=== PATIENT | female | born 1980 | race Two or more races ===

== ENCOUNTER 2023-06-21 10:50 | Emergency (ER) | payer SELFPAY ==
[~2023-06-21] VITALS: Ht 160 cm; Wt 70.2 kg
[2023-06-21] MEDS ORDERED: LABETALOL HCL 5 MG/ML 4ML SYRINGE IV ONE ×2 (11:45→13:30)
[2023-06-21 11:51] VITALS: TEMP 97
[2023-06-21 11:58] LABS: Basophils # (auto) 0 10 ^3/uL (0-0.2); Basophils % (auto) 0.5 % (0.0-2.0); Eosinophils # (auto) 0 10 ^3/uL (0-0.8); Hematocrit 43.4 % (36.0-46.0); Hemoglobin 14.2 g/dL (12.2-16.2); Lymphocytes # (auto) 0.8 10 ^3/uL (0.4-5.4); Lymphocytes % (auto) 8.4 % (10.0-50.0); Mean Corpuscular Hemoglobin 28.2 pg (28.0-32.0); Mean Corpuscular Hgb Conc. 32.6 g/dL (32.0-36.0); Mean Corpuscular Volume 86.5 fL (80.0-100.0); Monocytes # (auto) 0.2 10 ^3/uL (0-1.3); Monocytes % (auto) 2.6 % (0.0-12.0); Neutrophils # (auto) 8.5 10 ^3/uL (1.6-8.6); Neutrophils % (auto) 88.5 % (37.0-80.0); Red Blood Cells 5.02 10^6/uL (4.0-5.20); White Blood Cell 9.6 10^3/uL (4.4-10.8)
[2023-06-21 12:04] LABS: Urine Epithelial Cast None Seen /hpf (<5)
[2023-06-21 12:17] LABS: Urine Bacteria NONE SEEN /hpf (None Seen); Urine Blood 2+ /uL (Negative); Urine Clarity Clear (Clear); Urine Color Yellow (Yellow); Urine Mucus FEW (None Seen); Urine Protein, UAD 1+ (Negative); Urine Specific Gravity 1.024 (1.001-1.035); Urine Urobilinogen Normal (Negative); Urine WBC <1 /hpf (0 - 5)
[2023-06-21 12:19] LABS: Alanine Aminotransferase 23 U/L (7-40); Albumin 4.7 g/dL (3.2-4.8); Alkaline Phosphatase 75 U/L (46-116); Anion Gap 5 (5-15); Aspartate Aminotransferase 24 U/L (13-40); BUN/Creatinine Ratio 18.2 (10.0-20.0); Bilirubin, Total 0.5 mg/dL (0.2-1.0); Blood Urea Nitrogen 10 mg/dL (9-23); Carbon Dioxide 26 mmol/L (20-30); Chloride 105 mmol/L (98-107); Glucose 98 mg/dL (74-106); Potassium 4.1 mmol/L (3.5-5.1); Sodium 136 mmol/L (136-145); Total Protein 7.5 g/dL (5.7-8.2)
[2023-06-21 12:26] LABS: Amphetamine Screen, Urine Neg (NEGATIVE); Barbiturate Scree,Urine Neg (NEGATIVE); Benzodiazephine Screen, Urine Neg (NEGATIVE); Cannabinoid Screen, Urine Neg (NEGATIVE); Cocaine Screen, Urine Neg (NEGATIVE); Opiate Scree,Urine Pos (NEGATIVE); Phencyclidine Screen, Urine Neg (NEGATIVE)
[2023-06-21 12:43] LABS: Erythrocyte Sedimentation Rate 5 mm/hr (0-20)
[2023-06-21] MEDS ORDERED: METOCLOPRAMIDE HCL 5MG/ml INJ 2ml VIAL IV ONE (13:30)
[2023-06-21] MEDS ORDERED: MAGNESIUM SULFATE 1GM/100ML 100 ML IV ONE (13:30)
[2023-06-21] MEDS ORDERED: KETOROLAC TROMETH 60MG/2ML VIAL IV ONE (14:00)
[2023-06-21 18:37] VITALS: PULSE 63; RESP 18; O2SAT 95
[2023-06-21 18:39] VITALS: BP 134/85; PULSE 64; RESP 16; O2SAT 95
[2023-06-21] MEDS ORDERED: AML5T PO (19:09)
== END 2023-06-21 19:34 | disposition home or self-care (01) ==
LOC: ER 10:50
DX: I10 Essential (primary) hypertension (principal); R51.9 Headache, unspecified; Z98.890 Other specified postprocedural states; Z88.8 Allergy status to other drugs, medicaments and biological substances; Z79.899 Other long term (current) drug therapy
CPT/HCPCS: 36415; 70450; 71045; 80053; 80307; 81001; 81025; 84484; 85025; 85652; 96365; 96375; 96376; 99285; J1885; J2765; J3475; J3490